=== PATIENT | male | born 1975 | race Caucasian/White ===

== ENCOUNTER 2019-10-13 09:37 | Emergency (ER) | payer MEDICARE ==
[~2019-10-13] VITALS: Ht 188 cm; Wt 129.6 kg
[~2019-10-13 09:37] MED LIST: CLON-527 PO; CYCL-1 PO; CYCL-394 PO; LAMO150T2 PO; METH27TA7 PO; NAPR-1144 PO; NAPR-56 PO; TEST200V6 IM; TOP100T PO; [UNRECOGNIZED DRUG - CODE] PO; test
[2019-10-13 10:22] VITALS: BP 142/61
[2019-10-13] MEDS ORDERED: NAPR-56 PO (10:32)
== END 2019-10-13 10:56 | disposition home or self-care (01) ==
LOC: ER 09:38
DX: S93.491A Sprain of other ligament of right ankle, initial encounter (principal); F31.9 Bipolar disorder, unspecified; Z79.899 Other long term (current) drug therapy; X50.1XXA Overexertion from prolonged static or awkward postures, initial encounter; Y93.89 Activity, other specified; Y92.89 Other specified places as the place of occurrence of the external cause; Y99.8 Other external cause status
CPT/HCPCS: 29515; 73610; 73630; 99283

== ENCOUNTER 2020-10-26 09:13 | Outpatient (CLI) | payer MEDICARE ==
[~2020-10-26 09:13] MED LIST changes: +APIX5TAB3 PO; +ASPI-611 PO; +ATOR20TA66 PO; +CLOP75TA35 PO; -CYCL-1 PO; -CYCL-394 PO; +DOXY-243 PO; +HYDR-4383 PO; -LAMO150T2 PO; +LISI-600 PO; -METH27TA7 PO; +METO-395 PO; -NAPR-1144 PO; -NAPR-56 PO; +QUET100T33 PO; -TEST200V6 IM; -TOP100T PO; +TRAZ-251 PO; -[UNRECOGNIZED DRUG - CODE] PO; +gabapentin capsule PO; -test
[2020-10-26] MEDS ORDERED: LIDOcaine 2% 5ml jelly ONE (09:39)
[2020-10-26] MEDS ORDERED: ATOR40TA PO (15:25)
[2020-10-26] MEDS ORDERED: METO-395 PO (15:25)
[2020-10-26] MEDS ORDERED: GABA-530 PO (15:25)
[2020-10-26] MEDS ORDERED: APIX5TAB3 PO (15:25)
[2020-10-26] MEDS ORDERED: HYDR-4383 PO (15:25)
[2020-10-26] MEDS ORDERED: CLOP75TA15 PO (15:25)
[2020-10-26] MEDS ORDERED: LISI40TA4 PO (15:25)
[2020-10-26] MEDS ORDERED: ASPI81TA52 PO (15:25)
[2020-10-26] MEDS ORDERED: DOXY-1 PO (15:25)
== END 2020-10-26 23:59 | disposition home or self-care (01) ==
LOC: WOUND CARE 09:13
PROVIDERS: ATTEND Nurse Practitioner
DX: T81.89XA Other complications of procedures, not elsewhere classified, initial encounter (principal); L97.225 Non-pressure chronic ulcer of left calf with muscle involvement without evidence of necrosis; E78.5 Hyperlipidemia, unspecified; I12.9 Hypertensive chronic kidney disease with stage 1 through stage 4 chronic kidney disease, or unspecified chronic kidney disease; N18.30 Chronic kidney disease, stage 3 unspecified; E66.9 Obesity, unspecified; G47.33 Obstructive sleep apnea (adult) (pediatric); F31.9 Bipolar disorder, unspecified; F17.210 Nicotine dependence, cigarettes, uncomplicated; F25.9 Schizoaffective disorder, unspecified; Z86.73 Personal history of transient ischemic attack (TIA), and cerebral infarction without residual deficits; Z68.36 Body mass index [BMI] 36.0-36.9, adult; Z79.899 Other long term (current) drug therapy; Z86.718 Personal history of other venous thrombosis and embolism; Z79.01 Long term (current) use of anticoagulants; Z79.82 Long term (current) use of aspirin; Y83.8 Other surgical procedures as the cause of abnormal reaction of the patient, or of later complication, without mention of misadventure at the time of the procedure; Y92.238 Other place in hospital as the place of occurrence of the external cause
CPT/HCPCS: G0463

== ENCOUNTER 2020-10-27 10:50 | Day surgery (SDC) | payer MEDICARE ==
[~2020-10-27] VITALS: Ht 188 cm; Wt 127.7 kg
[2020-10-27] VITALS (7 sets, daily range): BP systolic 118–149; BP diastolic 76–88
[~2020-10-27 10:50] MED LIST changes: -ASPI-611 PO; +ASPI81TA52 PO; -ATOR20TA66 PO; +ATOR40TA PO; +CLOP75TA15 PO; -CLOP75TA35 PO; +DOCUMENT DATE & TIME OF BETA-BLOCKER PO ONE; +DOXY-1 PO; -DOXY-243 PO; +GABA-530 PO; -LISI-600 PO; +LISI40TA4 PO; +ceFAZolin inj. 3,000 MG in normal saline 100ml IV soln 100 ML IV ONE; +famotidine 20mg tablet PO ONE; -gabapentin capsule PO; +ringers solution, lacted 1,000 ML IV SCH
[2020-10-27] MEDS ORDERED: bacitracin 15gm ointment TP ONE (13:24)
[2020-10-27] MEDS ORDERED: ceFAZolin 1000mg inj ONE (13:24)
[2020-10-27] MEDS ORDERED: dexamethasone sod phosphate 10mg/ml inj ONE (13:27)
[2020-10-27] MEDS ORDERED: sevoflurane 250ml liquid IH ONE (13:27)
[2020-10-27] MEDS ORDERED: fentaNYL/PF 50MCG/1 ML 2ML syringe ONE ×3 (13:28→14:16)
[2020-10-27] MEDS ORDERED: LIDOcaine 2% (20mg/ml) 5ml vial ONE (13:29)
[2020-10-27] MEDS ORDERED: midazolam 2 mg/2 ml injection ONE (13:29)
[2020-10-27] MEDS ORDERED: propofol inj 20 ML IV ONE (13:29)
[2020-10-27] MEDS ORDERED: ondansetron/PF 4mg/2ml inj ONE (13:32)
[2020-10-27] MEDS ORDERED: morphine 2 MG/ML inj. syringe IV PRN (13:55)
[2020-10-27] MEDS ORDERED: morphine 4 MG/ML inj SYRINge IV PRN (13:55)
[2020-10-27] MEDS ORDERED: fentaNYL/PF 50MCG/1 ML 2ML syringe IV PRN ×2 (13:55)
[2020-10-27] MEDS ORDERED: ondansetron/PF 4mg/2ml inj IV PRN (13:55)
[2020-10-27] MEDS ORDERED: hydrALAZINE 20mg/ml inj. IV PRN (13:55)
[2020-10-27] MEDS ORDERED: labetalol 20mg/4ml (5mg/ml) syringe IV PRN (13:55)
[2020-10-27] MEDS ORDERED: ringers solution, lacted 1,000 ML IV SCH (13:55)
--- NOTE | 2020-10-27 15:05 | NUR ---
Received from OR via [facility], accompanied by Anesthesiologist nancy and report given by Anesthesiolgist. PT VS stable, bradycardic but MD states okay. Left lower extrem wrapped with dressing and TAMARA wrap. Remains CDI. Palpable distal pulses. IVF LR at 100cc/hr in Right hand 18G.
--- NOTE | 2020-10-27 15:15 | NUR ---
Pt woke up, oriented, moves all extrems, no pain.
--- NOTE | 2020-10-27 16:05 | NUR ---
Pt discharged to vehicle by wheelchair without incident after IV DC'd and all belongings returned to patient. to receive. Pain remains tolerable at 2/. Pat has pain meds at home. I called to schedule his follow up appointment with wound care on [address] Lux for discharge instructions.
--- NOTE | 2020-10-27 19:30 | NUR ---
After discharge, received call from who in detail described oozing through dressing, serosang, in patchy areas. When patient was discharged earlier the dressing was clean dry and intact. requesting advice on what to do. This information was relayed to Doctor Lux. He stated to tell them to reinforce the leg with dressing supplies if they have them, towels if not, elevate and watch. He also stated he expected some oozing because he is on blood thinners, and not to wait until scheduled appointment on sunday but to come in tomorrow on morning to see the nurse practitioner in wound care (who was also in his surgery and will be expecting him). This was all relayed back to by phone and she verbalized understanding of plan and felt comfortable with plan. I also told her that if the drainage really increases and turns into kelley red blood and/or becomes symptomatic r/t hypotension and blood loss (symptoms described) then not to wait, and come back to the ER to be assessed. verbalized understanding of this also.
== END 2020-10-27 16:05 | disposition home or self-care (01) ==
LOC: PAS 10:50
PROVIDERS: ATTEND Surgery
DX: T81.89XA Other complications of procedures, not elsewhere classified, initial encounter (principal); I10 Essential (primary) hypertension; G47.33 Obstructive sleep apnea (adult) (pediatric); F31.9 Bipolar disorder, unspecified; F17.210 Nicotine dependence, cigarettes, uncomplicated; E66.9 Obesity, unspecified; Z68.36 Body mass index [BMI] 36.0-36.9, adult; Z79.899 Other long term (current) drug therapy; Z86.73 Personal history of transient ischemic attack (TIA), and cerebral infarction without residual deficits; Z79.01 Long term (current) use of anticoagulants; Y83.8 Other surgical procedures as the cause of abnormal reaction of the patient, or of later complication, without mention of misadventure at the time of the procedure; Y92.89 Other specified places as the place of occurrence of the external cause
CPT/HCPCS: 13160; 82948; A6223; J0690; J1100; J2001; J2250; J2405; J2704; J3010; J7120; A4618; A6253; A6449; A7000

== ENCOUNTER 2020-10-28 11:24 | Outpatient (CLI) | payer MEDICARE ==
[~2020-10-28 11:24] MED LIST changes: -DOCUMENT DATE & TIME OF BETA-BLOCKER PO ONE; -ceFAZolin inj. 3,000 MG in normal saline 100ml IV soln 100 ML IV ONE; -famotidine 20mg tablet PO ONE; -ringers solution, lacted 1,000 ML IV SCH
== END 2020-10-28 23:59 | disposition home or self-care (01) ==
LOC: WOUND CARE 11:24 → EDSTATUS 10-29 10:20
PROVIDERS: ATTEND Nurse Practitioner
DX: T81.89XD Other complications of procedures, not elsewhere classified, subsequent encounter (principal); L97.225 Non-pressure chronic ulcer of left calf with muscle involvement without evidence of necrosis; E78.5 Hyperlipidemia, unspecified; I12.9 Hypertensive chronic kidney disease with stage 1 through stage 4 chronic kidney disease, or unspecified chronic kidney disease; N18.30 Chronic kidney disease, stage 3 unspecified; E66.9 Obesity, unspecified; G47.33 Obstructive sleep apnea (adult) (pediatric); F31.9 Bipolar disorder, unspecified; F17.210 Nicotine dependence, cigarettes, uncomplicated; F25.9 Schizoaffective disorder, unspecified; Z86.73 Personal history of transient ischemic attack (TIA), and cerebral infarction without residual deficits; Z68.36 Body mass index [BMI] 36.0-36.9, adult; Z79.899 Other long term (current) drug therapy; Z86.718 Personal history of other venous thrombosis and embolism; Z79.01 Long term (current) use of anticoagulants; Z79.82 Long term (current) use of aspirin; Y83.8 Other surgical procedures as the cause of abnormal reaction of the patient, or of later complication, without mention of misadventure at the time of the procedure
CPT/HCPCS: G0463

== ENCOUNTER 2020-11-01 10:11 | Outpatient (CLI) | payer MEDICARE ==
[2020-11-01] MEDS ORDERED: LIDOcaine 2% 5ml jelly ONE (10:36)
== END 2020-11-01 23:59 | disposition home or self-care (01) ==
LOC: WOUND CARE 10:11
PROVIDERS: ATTEND Nurse Practitioner Family
DX: T81.89XD Other complications of procedures, not elsewhere classified, subsequent encounter (principal); L97.225 Non-pressure chronic ulcer of left calf with muscle involvement without evidence of necrosis; E78.5 Hyperlipidemia, unspecified; I12.9 Hypertensive chronic kidney disease with stage 1 through stage 4 chronic kidney disease, or unspecified chronic kidney disease; N18.30 Chronic kidney disease, stage 3 unspecified; E66.9 Obesity, unspecified; G47.33 Obstructive sleep apnea (adult) (pediatric); F31.9 Bipolar disorder, unspecified; F17.210 Nicotine dependence, cigarettes, uncomplicated; F25.9 Schizoaffective disorder, unspecified; Z86.73 Personal history of transient ischemic attack (TIA), and cerebral infarction without residual deficits; Z68.36 Body mass index [BMI] 36.0-36.9, adult; Z79.899 Other long term (current) drug therapy; Z86.718 Personal history of other venous thrombosis and embolism; Z79.01 Long term (current) use of anticoagulants; Z79.82 Long term (current) use of aspirin; Y83.8 Other surgical procedures as the cause of abnormal reaction of the patient, or of later complication, without mention of misadventure at the time of the procedure
CPT/HCPCS: 11042; 11045

== ENCOUNTER 2020-11-03 10:39 | Outpatient (CLI) | payer MEDICARE | END 2020-11-03 23:59 | disposition home or self-care (01) | LOC: WOUND CARE 10:39 | PROVIDERS: ATTEND Nurse Practitioner | DX: T81.89XD Other complications of procedures, not elsewhere classified, subsequent encounter (principal); L97.222 Non-pressure chronic ulcer of left calf with fat layer exposed; E78.5 Hyperlipidemia, unspecified; I12.9 Hypertensive chronic kidney disease with stage 1 through stage 4 chronic kidney disease, or unspecified chronic kidney disease; N18.30 Chronic kidney disease, stage 3 unspecified; E66.9 Obesity, unspecified; G47.33 Obstructive sleep apnea (adult) (pediatric); F31.9 Bipolar disorder, unspecified; F17.210 Nicotine dependence, cigarettes, uncomplicated; F25.9 Schizoaffective disorder, unspecified; Z86.73 Personal history of transient ischemic attack (TIA), and cerebral infarction without residual deficits; Z68.36 Body mass index [BMI] 36.0-36.9, adult; Z79.899 Other long term (current) drug therapy; Z86.718 Personal history of other venous thrombosis and embolism; Z79.01 Long term (current) use of anticoagulants; Z79.82 Long term (current) use of aspirin; Y83.8 Other surgical procedures as the cause of abnormal reaction of the patient, or of later complication, without mention of misadventure at the time of the procedure | CPT/HCPCS: G0463 ==

== ENCOUNTER → 2020-11-10 | Outpatient (CLI) | payer MEDICARE ==
[~2020-11-10] MED LIST changes: +LIDOcaine 2% 5ml jelly ONE
== END | disposition home or self-care (01) ==
LOC: WOUND CARE 10:51
PROVIDERS: ATTEND Nurse Practitioner Family
DX: T81.89XD Other complications of procedures, not elsewhere classified, subsequent encounter (principal); L97.222 Non-pressure chronic ulcer of left calf with fat layer exposed; E78.5 Hyperlipidemia, unspecified; I12.9 Hypertensive chronic kidney disease with stage 1 through stage 4 chronic kidney disease, or unspecified chronic kidney disease; N18.30 Chronic kidney disease, stage 3 unspecified; E66.9 Obesity, unspecified; G47.33 Obstructive sleep apnea (adult) (pediatric); F31.9 Bipolar disorder, unspecified; F17.210 Nicotine dependence, cigarettes, uncomplicated; F25.9 Schizoaffective disorder, unspecified; Z86.73 Personal history of transient ischemic attack (TIA), and cerebral infarction without residual deficits; Z68.36 Body mass index [BMI] 36.0-36.9, adult; Z79.899 Other long term (current) drug therapy; Z86.718 Personal history of other venous thrombosis and embolism; Z79.01 Long term (current) use of anticoagulants; Z79.82 Long term (current) use of aspirin; Y83.8 Other surgical procedures as the cause of abnormal reaction of the patient, or of later complication, without mention of misadventure at the time of the procedure
CPT/HCPCS: 97597; 97598

== ENCOUNTER 2020-11-16 07:44 | Outpatient (CLI) | payer MEDICARE ==
[~2020-11-16 07:44] MED LIST changes: -LIDOcaine 2% 5ml jelly ONE
[2020-11-16] MEDS ORDERED: LIDOcaine 2% 5ml jelly ONE (08:11)
[2020-11-16 09:49] LABS: BASOPHILS # (AUTO) 0.1 X10'3 (0-0.2); BASOPHILS % (AUTO) 0.9 % (0-1); EOSINOPHILS # (AUTO) 0.3 X10'3 (0-0.9); EOSINOPHILS % (AUTO) 3.4 % (0-6); LYMPHOCYTES % (AUTO) 20.4 % (21-51); MEAN CORPUSCULAR HEMOGLOBIN 33.3 PG (27.0-31.0); MEAN CORPUSCULAR HGB CONC 34.2 g/dL (33.0-36.5); MEAN CORPUSCULAR VOLUME 97.5 FL (78-98); MEAN PLATELET VOLUME 8.5 FL (7.4-10.4); MONOCYTES % (AUTO) 10.6 % (2-12); NEUTROPHILS # (AUTO) 6.2 X10'3 (1.8-7.7); NEUTROPHILS % (AUTO) 64.7 % (42-75); PRE OP HEMATOCRIT 34.1 % (42.0-52.0); PRE OP HEMOGLOBIN 11.7 g/dL (14.0-17.9); PRE OP PLATELET COUNT 323 X10'3 (140-440); RED CELL DISTRIBUTION WIDTH 14.5 % (11.5-14.5)
[2020-11-16 10:01] LABS: ALBUMIN 3.5 G/DL (3.4-5.0); ALBUMIN/GLOBULIN RATIO 0.9 (1.1-1.5); ALKALINE PHOSPHATASE 101 IU/L (46-116); BLOOD UREA NITROGEN 20 MG/DL (7-18); CHLORIDE 104 MMOL/L (99-107); CREATININE 1.11 MG/DL (0.60-1.10); PRE OP ALT 45 U/L (30-65); PRE OP ANION GAP 8 (8-16); PRE OP AST 26 U/L (10-37); PRE OP BILIRUB, TOTAL 0.2 MG/DL (0.0-1.0); PRE OP GLUCOSE 119 MG/DL (70-104); PRE OP SODIUM 139 MMOL/L (135-145); TOTAL CARBON DIOXIDE 27.2 MMOL/L (24-32); TOTAL PROTEIN 7.4 G/DL (6.4-8.2); eGFR 72 ML/MIN
[2020-11-16 10:02] LABS: PRE OP POTASSIUM 4.8 MMOL/L (3.4-5.1)
== END 2020-11-16 23:59 | disposition home or self-care (01) ==
LOC: WOUND CARE 07:44
PROVIDERS: ATTEND Nurse Practitioner
DX: T81.89XD Other complications of procedures, not elsewhere classified, subsequent encounter (principal); L97.222 Non-pressure chronic ulcer of left calf with fat layer exposed; E78.5 Hyperlipidemia, unspecified; I12.9 Hypertensive chronic kidney disease with stage 1 through stage 4 chronic kidney disease, or unspecified chronic kidney disease; N18.30 Chronic kidney disease, stage 3 unspecified; E66.9 Obesity, unspecified; G47.33 Obstructive sleep apnea (adult) (pediatric); F31.9 Bipolar disorder, unspecified; F17.210 Nicotine dependence, cigarettes, uncomplicated; F25.9 Schizoaffective disorder, unspecified; Z86.73 Personal history of transient ischemic attack (TIA), and cerebral infarction without residual deficits; Z68.36 Body mass index [BMI] 36.0-36.9, adult; Z79.899 Other long term (current) drug therapy; Z86.718 Personal history of other venous thrombosis and embolism; Z79.01 Long term (current) use of anticoagulants; Z79.82 Long term (current) use of aspirin; Y83.8 Other surgical procedures as the cause of abnormal reaction of the patient, or of later complication, without mention of misadventure at the time of the procedure
CPT/HCPCS: 36415; 80048; 80053; 85025; G0463

== ENCOUNTER 2020-11-17 09:26 | Day surgery (SDC) | payer MEDICARE ==
[~2020-11-17] VITALS: Ht 188 cm; Wt 127.0 kg
[2020-11-17] VITALS (13 sets, daily range): BP systolic 138–199; BP diastolic 84–116
[~2020-11-17 09:26] MED LIST changes: -ASPI81TA52 PO; +famotidine 20mg tablet PO ONE; +ringers solution, lacted 1,000 ML IV SCH
[2020-11-17] MEDS ORDERED: ceFAZolin inj. 3,000 MG in normal saline 100ml IV soln 100 ML IV ONE (10:10)
[2020-11-17] MEDS ORDERED: sevoflurane 250ml liquid IH ONE (11:26)
[2020-11-17] MEDS ORDERED: midazolam 2 mg/2 ml injection ONE (11:29)
[2020-11-17] MEDS ORDERED: fentaNYL/PF 50MCG/1 ML 2ML syringe ONE (11:29)
[2020-11-17] MEDS ORDERED: propofol inj 20 ML IV ONE (11:32)
[2020-11-17] MEDS ORDERED: ondansetron/PF 4mg/2ml inj IV PRN (11:55)
[2020-11-17] MEDS ORDERED: proCHLORperazine 10 MG/2 ml inj IV PRN (11:55)
[2020-11-17] MEDS ORDERED: meperidine/PF 25mg/ml syringe IV PRN ×3 (11:55)
[2020-11-17] MEDS ORDERED: morphine 2 MG/ML inj. syringe IV PRN (11:55)
[2020-11-17] MEDS ORDERED: ringers solution, lacted 1,000 ML IV SCH (11:55)
--- NOTE | 2020-11-17 12:14 | NUR ---
Received from OR via [facility], accompanied by Anesthesiologist Milo and report given by Anesthesiolgist. Pt sleepy but responsive. all VS stable mask on at 10L. Sats 100%. Left leg with gauze dressing and bree wrap, foot exposed, palpable dorsal pedis pulses. Right AC 20G IV IVF LR at 100cc/hr.
[2020-11-17] MEDS: morphine 4 MG/ML inj SYRINge IV PRN ×2 (12:34→12:48)
[2020-11-17] MEDS ORDERED: labetalol 20mg/4ml (5mg/ml) syringe IV ONE ×2 (12:50→12:54)
[2020-11-17] MEDS ORDERED: hydrALAZINE 20mg/ml inj. IV ONE (13:25)
--- NOTE | 2020-11-17 14:24 | NUR ---
Pt discharged to vehicle by wheelchair without incident after IV dc'd. all belongings including phone and wallet returned to patient. Dressing remains CDI at this time, I confirmed that they have further dressing supplies at home in case of oozing. I confirmed they have a home health appointment for tomorrow 11-18-20, and they are going to ask for another home health appointment for Sunday11-20-20. Wound care appointment scheduled by myself for 999, relayed to patient and . Pt and verbalized understanding of all DC instructions, follow up appointments and relayed that they understood it is critical he wears his CPAP machine for at least 24 hours whenever resting. Pt already has pain meds and ABX picked up from pharmacy at home.
== END 2020-11-17 14:24 | disposition home or self-care (01) ==
LOC: PAS 09:26
PROVIDERS: ATTEND Surgery
DX: T81.89XA Other complications of procedures, not elsewhere classified, initial encounter (principal); F31.9 Bipolar disorder, unspecified; F17.210 Nicotine dependence, cigarettes, uncomplicated; G47.30 Sleep apnea, unspecified; I10 Essential (primary) hypertension; E66.9 Obesity, unspecified; Z68.35 Body mass index [BMI] 35.0-35.9, adult; Z20.822 Contact with and (suspected) exposure to COVID-19; Z79.899 Other long term (current) drug therapy; Z79.01 Long term (current) use of anticoagulants; Z79.82 Long term (current) use of aspirin; Z86.73 Personal history of transient ischemic attack (TIA), and cerebral infarction without residual deficits; Z98.890 Other specified postprocedural states; Y83.8 Other surgical procedures as the cause of abnormal reaction of the patient, or of later complication, without mention of misadventure at the time of the procedure; Y92.89 Other specified places as the place of occurrence of the external cause
CPT/HCPCS: 13160; 82948; 87635; A6222; C9803; J0360; J0690; J2175; J2250; J2270; J2704; J3010; A4618; A6253; A6446; A6449; A7000; J3490; J7120